=== PATIENT | male | born 1930 | race Caucasian/White ===

== ENCOUNTER 2019-01-08 16:30 | Inpatient (IN) ==
[2019-01-08] MEDS ORDERED: 0.9 % SODIUM CHLORIDE 1,000 ML IV ONE ×2 (16:40→16:41)
[2019-01-08] MEDS ORDERED: ACETAMINOPHEN 325 MG TABLET PO ONE (16:50)
--- NOTE | 2019-01-08 16:59 | Emergency Department Note ---
Weakness HPI - General Chief complaint: Weakness Stated complaint: Fever, weakness, cold symptoms. Time Seen by Provider: 01/08/19 16:40 Source: patient Mode of arrival: ambulatory Limitations: no limitations - History of Present Illness HPI Narrative: Since sent over from the [place] [facility] for weakness and dehydration with multiple episodes of diarrhea over the past 3 days she started having fever and chills today there is been no blood in the stool. He has been on no antibiotics recently. He said no nausea no vomiting denies abdominal pain. Temperatures 101.8 pulse is 83, blood pressure is 120/76 pulse ox is 96% - Related Data Allergies Allergy/AdvReac Type Severity Reaction Status Date / Time No Known Drug Allergies Allergy Verified 01/08/19 16:32 Review of Systems All systems ED: reviewed and negative except as stated. Constitutional: Reports: fever, chills Gastrointestinal: Reports: diarrhea. Denies: nausea, vomiting, constipation Genitourinary: Denies: dysuria, frequency Past Medical History - Past Medical History Medical history: Reports: other (BPH, allergic rhinitis, hyperlipidemia, GERD, reactive airway disease,) Surgical history ED: Reports: non-contributory Family history: Reports: non-contributory - Social History smoking status: Former smoker Alcohol use: Reports: Rarely Drug use: Reports: none Physical Exam Limitations: no limitations General appearance: alert Head: atraumatic, normocephalic Eye: Present: normal appearance, PERRL ENT: normal exam, normal oropharynx, mucous membranes dry Neck: Present: normal inspection, full ROM, trachea midline Chest: Present: normal inspection, symmetric chest wall rise. Absent: tenderness Respiratory: Present: normal lung sounds bilaterally. Absent: respiratory distress, rales/crackles, wheezes Cardiovascular: Present: regular rate, normal rhythm Abdominal: Present: soft. Absent: distention, tenderness, guarding, rebound Extremities: Present: normal inspection, full ROM. Absent: tenderness Back: Present: normal inspection, full ROM. Absent: tenderness Neurological: Present: alert, oriented X3, CN II-XII intact Psychiatric: Present: normal affect, normal mood Skin: Present: warm, cool, dry Course Vital Signs Temperature 101.8 F H 01/08/19 16:32 Pulse Rate 86 01/08/19 16:32 Respiratory Rate 18 01/08/19 16:32 Blood Pressure 122/92 01/08/19 16:32 Pulse Oximetry (%) 97 01/08/19 16:32 Temperature 97.7 F 01/08/19 17:45 Pulse Rate 63 01/08/19 22:21 Respiratory Rate 19 01/08/19 22:21 Blood Pressure 91/65 01/08/19 22:21 Pulse Oximetry (%) 94 01/08/19 22:21 Weakness - MDM Narrative Medical decision making narrative: Patient given IV fluids states he is feeling much improved. He has been unable to give us a stool sample however patient's main complaint is been his diarrhea at this time unable to give us a sample that he has been on no antibiotics recently he statesWhite count 13,100 to hemoglobin 14.6 lactic acid is 1.3 sodium is 136 potassium 4.6 BUN is 22 creatinine 0.9 urine test shows [address] of the abdomen revealed multiple diverticulosis no obvious diverticulitis but is suspicious that we started him on IV Levaquin and Flagyl patient finally able to give us a stool sample waiting for results of the C. difficile. His temperatures come down to normal at 97.7 at this time blood pressures come down to the mid 90s , waiting C. difficile test is neg patient discussed with Dr. Quinones patient admitted - Lab Data Result diagrams: 01/08/19 16:51 01/08/19 16:50 Lab Results 01/08/19 01/08/19 01/08/19 Range/Units 16:50 16:51 16:51 WBC 13.1 H (4.5-11.0) K/mcL RBC 4.66 (4.50-5.90) M/mcL Hgb 14.6 (13.5-16.5) g/dL Hct 43.9 (41.0-55.0) % MCV 94.3 (80.0-100.0) fL MCH 31.4 (26.0-34.0) pg MCHC 33.3 (31.0-36.0) g/dL RDW 13.2 (11.5-14.5) % Plt Count 160 (140-440) K/mcL MPV 8.6 (7.4-10.4) fL Total Counted 100 Seg Neutrophils % 67 (38-78) % Band Neutrophils % 13 H (0-10) % Lymphocytes % 12 L (15-49) % Monocytes % (Manual) 8 (1-12) % Platelet Estimate Normal (NORMAL) RBC Morphology Normal (NORMAL) VBG Lactic Acid 1.3 (0.5-2.0) mmol/L Sodium 136 (133-145) mmol/L Potassium 4.3 (3.3-5.1) mmol/L Chloride 103 (96-108) mmol/L Carbon Dioxide 18 L (22-30) mmol/L Anion Gap 15.0 (8-16) BUN 20 (8-23) mg/dl Creatinine 0.9 (0.7-1.2) mg/dl GFR Calculation 77 Glucose 136 H (70-105) mg/dL Calcium 8.6 (8.6-10.4) mg/dl Total Bilirubin 0.8 (0.0-1.0) mg/dL AST 15 (0-37) U/l ALT 12 (0-40) U/l Alkaline Phosphatase 77 (39-117) U/L Total Protein 7.2 (5.9-8.4) gm/dL Albumin 3.9 (3.2-5.2) gm/dL Globulin 3.3 (2.2-3.7) gm/dL Albumin/Globulin Ratio 1.2 (1.0-2.3) Urine Color Urine Appearance Urine pH (5.0-9.0) Ur Specific [place] (1.000-1.035) Urine Protein (NEG) mg/dL Urine Glucose (UA) (NEG) mg/dL Urine Ketones (NEG) mg/dL Urine Occult Blood (<0.03) mg/dL Urine Nitrate (NEG) Urine Bilirubin (NEG) mg/dL Urine Urobilinogen (NEG) mg/dL Ur Leukocyte Esterase (NEG) /uL Urine RBC (0-1) /hpf Urine WBC (0-4) /hpf Ur Squamous Epith Cells (0-4) /hpf Urine Bacteria (0) /hpf Hyaline Casts (0-2) /lpf Urine Mucus (0) /hpf Ur Culture Indicated? 01/08/19 Range/Units 18:20 WBC (4.5-11.0) K/mcL RBC (4.50-5.90) M/mcL Hgb (13.5-16.5) g/dL Hct (41.0-55.0) % MCV (80.0-100.0) fL MCH (26.0-34.0) pg MCHC (31.0-36.0) g/dL RDW (11.5-14.5) % Plt Count (140-440) K/mcL MPV (7.4-10.4) fL Total Counted Seg Neutrophils % (38-78) % Band Neutrophils % (0-10) % Lymphocytes % (15-49) % Monocytes % (Manual) (1-12) % Platelet Estimate (NORMAL) RBC Morphology (NORMAL) VBG Lactic Acid (0.5-2.0) mmol/L Sodium (133-145) mmol/L Potassium (3.3-5.1) mmol/L Chloride (96-108) mmol/L Carbon Dioxide (22-30) mmol/L Anion Gap (8-16) BUN (8-23) mg/dl Creatinine (0.7-1.2) mg/dl GFR Calculation Glucose (70-105) mg/dL Calcium (8.6-10.4) mg/dl Total Bilirubin (0.0-1.0) mg/dL AST (0-37) U/l ALT (0-40) U/l Alkaline Phosphatase (39-117) U/L Total Protein (5.9-8.4) gm/dL Albumin (3.2-5.2) gm/dL Globulin (2.2-3.7) gm/dL Albumin/Globulin Ratio (1.0-2.3) Urine Color Yellow Urine Appearance Hazy Urine pH 5.0 (5.0-9.0) Ur Specific [place] 1.026 (1.000-1.035) Urine Protein Neg (NEG) mg/dL Urine Glucose (UA) Negative (NEG) mg/dL Urine Ketones Neg (NEG) mg/dL Urine Occult Blood Neg (<0.03) mg/dL Urine Nitrate Neg (NEG) Urine Bilirubin Neg (NEG) mg/dL Urine Urobilinogen Neg (NEG) mg/dL Ur Leukocyte Esterase Neg (NEG) /uL Urine RBC 1 (0-1) /hpf Urine WBC 2 (0-4) /hpf Ur Squamous Epith Cells < 1 (0-4) /hpf Urine Bacteria 0 (0) /hpf Hyaline Casts 2 (0-2) /lpf Urine Mucus Many A (0) /hpf Ur Culture Indicated? No Disposition Pt seen by PODIATRY DOCTOR/PA only: No Clinical Impression: Diverticulitis Disposition: Xfer As Inpt ([facility]) Condition: Fair Referrals: Igor Davis MD [Primary Care Provider] -
[2019-01-08 17:29] LABS: Mean Cell Volume 94.3 fL (80.0-100.0); Mean Corpuscular HGB Conc 33.3 g/dL (31.0-36.0); Platelet Count 160 K/mcL (140-440); RBC 4.66 M/mcL (4.50-5.90); Red Cell Distribution Width 13.2 % (11.5-14.5)
[2019-01-08 17:37] LABS: ALT/SGPT 12 U/l (0-40); Albumin 3.9 gm/dL (3.2-5.2); Albumin/Globulin Ratio 1.2 (1.0-2.3); Alkaline Phosphatase 77 U/L (39-117); Blood Urea Nitrogen 20 mg/dl (8-23)
[2019-01-08 18:55] LABS: Band Neutrophils % 13 % (0-10); Lymphocytes % 12 % (15-49); Monocytes % (Manual) 8 % (1-12); Platelet Estimate NORMAL (NORMAL); RBC Morphology NORMAL (NORMAL); Segmented Neutrophils % 67 % (38-78)
--- NOTE | 2019-01-08 18:59 | XRay Report ---
CLINICAL INFORMATION: fever. COMPARISON: 12/31/2010 FINDINGS: Moderate size hiatal hernia again noted. The remainder of the cardiomediastinal silhouette and pulmonary vessels are normal. Lungs are clear. No effusions IMPRESSION: Moderate hiatal hernia - no acute disease Interpreted and Authenticated by: Rob Shah 01/08/19
[2019-01-08 19:00] LABS: Appearance,Urine HAZY; Bacteria,Urine 0 /hpf (0); Bilirubin,Urine NEG (NEG); Color,Urine YELLOW; Glucose,Urine (UA) NEGATIVE (NEG); Leukocyte Esterase,Urine NEG /uL (NEG); Mucus,Urine MANY /hpf (0); Protein,Urine NEG (NEG); Specific Gravity,Urine 1.026 (1.000-1.035); Urine Blood NEG mg/dL (<0.03); Urine Hyaline Cast 2 /lpf (0-2); Urine RBC 1 /hpf (0-1); Urine Squamous Epithelial Cell < 1 /hpf (0-4); Urine WBC 2 /hpf (0-4); Urobilinogen,Urine NEG (NEG)
[2019-01-08] MEDS ORDERED: LACTATED RINGERS 1,000 ML IV ONE (19:29)
--- NOTE | 2019-01-08 19:37 | Cat Scan Report ---
CLINICAL INFORMATION: Fever and diarrhea COMPARISON: 03/08/[address] TECHNIQUE: Following enteric contrast, 80 cc of Isovue-300 were injected intravenously, and 60 seconds later, 0.625 mm helical slices were obtained from the mid heart through the subtrochanteric regions. Following reconstruction, 2.5 mm sagittal, coronal and axial reformatted images were processed and reviewed at bone, lung and soft tissue windows. Five minutes later, 0.625 mm helical slices were obtained from the mid heart through the kidneys and viewed at soft tissue windows.The exam was performed using radiation dose optimization techniques including, but not limited to, automated exposure control, adjustment of the mA and/or kV according to patient size and use of iterative reconstruction technique. FINDINGS: Lung bases show moderate patchy atelectasis and/or fibrosis resting from 2014. No effusion. A large hiatal hernia consisting of the entire stomach has transmigrated into the middle mediastinum and undergone organoaxial volvulus. This has increased in size from the previous study. Abdominal images show 3-4 small polyps or stones in the gallbladder ranging up to 8 mm which are unchanged. Gallbladder and bile ducts are, otherwise, normal CBD 5 mm. The liver, both adrenal glands, spleen, pancreas and aorta are unremarkable. 3.7 cm simple cyst noted superior pole the left kidney and a 1 cm simple cyst inferior pole left kidney. No free air, free fluid or adenopathy. The prostate is moderately enlarged but unchanged 5.7 x 3.6 cm. Urinary bladder is normal. Severe sigmoid diverticulosis with moderate diverticulosis in the descending colon and splenic flexure. No supportive CT evidence for associated diverticulitis. The remainder of the colon, small bowel and appendix are normal.. There is a moderate-sized right inguinal hernia spanning 5.5 x 2 cm contains a small amount of edema in the hernia sac. Bone windows show no osseous abnormality IMPRESSION: 1. Severe diverticulosis involving the descending and sigmoid colon. Although there is no CT evidence for diverticulitis. Mild diverticulitis may be CT occult 2. Moderate right inguinal hernia containing only mesenteric fat. 3. Massive hiatal hernia consisting of the entire stomach which has transmigrated into the middle mediastinum and undergone organoaxial volvulus. 4. 3-4 polyp or, less likely us stones in the gallbladder ranging up to 7 mm. Consider gallbladder ultrasound. These are unchanged. 5. Left renal cysts 6. Mild prostate enlargement Interpreted and Authenticated by: Rob Shah 01/08/19
[2019-01-08] MEDS ORDERED: metroNIDAZOLE 500 MG/100 ML BAG IV ONE (19:53)
[2019-01-08] MEDS ORDERED: LEVOFLOXACIN 500 MG/100 ML BAG IV ONE (19:53)
--- NOTE | 2019-01-08 23:35 | Internal Med History&Physical ---
Medical - H&P: HPI Patient information: Note initiated : 01/08/19 at 11:32 pm Service Date, if different from initiated Date: [] Patient: Manuel Irving a 88 y/o M admitted on for Fever, weakness, cold symptoms.. Chief Complaint: [] History of present illness: Mr. Irving is a 88 year old M with history of diabetes, hypertension hyperlipidemia presents to the hospital today for evaluation of weakness that has been bothering him for the last 4 days. Next line the patient notes that his symptoms started approximately 4 days ago. Patient had hypogastric pain cramping intermittent nonradiating associated with some bowel movements. The patient symptoms were associated with some nausea, also was not able to eat and drink well. The patient developed fever over the last couple of days with chills and Rigors , he also had some sweating. The patient was weak and therefore he went to see his provider at the [facility]. His friend was concerned that the patient was too weak to be by himself, at the [facility] after evaluation the patient was sent to the emergency room for further evaluation. Patient took some Pepto-Bismol yesterday which helped with his abdominal pain. On presentation to the emergency room patient was febrile temperature 101.8 heart rate 81 blood pressure 122/92, respirations 27, saturating more than 90% on room air. The patient did develop hypotension during the ER stay blood pressure as low as 80/64. Patient has leukocytosis WBC count of 13.1 hemoglobin 14.6 platelets 160 electrolytes show a bicarb of 18 creatinine 0.9 glucose 136 lactic acid is 1.3 UA negative for infection chest x-ray shows hiatal hernia CT abdomen and pelvis done shows diverticulosis cannot exclude diverticulitis C. difficile stool is negative stool has many WBCs. Given that the patient was febrile on presentation, has leukocytosis had low BP and is weak patient is being admitted to the hospital for further management. By the time of my evaluation the patient was afebrile blood pressure had normalized and patient was quite comfortable. grand daughter by the bed side All systems: reviewed and no additional remarkable complaints except as stated (As per HPI rest negative) Medical - H&P: PMH Medical history: Diabetes Hyperlipidemia COPD BPH Surgical history: Bowel surgery done Family history: reviewed and not pertinent Social history: Lives by himself ex-smoker ex-alcohol user has not drank alcohol or smoked for many decades Fairly independent at baseline Denies any recreational drug use Medical - H&P: Meds Allergies Allergy/AdvReac Type Severity Reaction Status Date / Time No Known Drug Allergies Allergy Verified 01/08/19 16:32 Medical - H&P: Exam - Constitutional Vitals: Temp Pulse Resp BP Pulse Ox 97.7 F 61 17 108/76 98 01/08/19 17:45 01/08/19 23:02 01/08/19 23:02 01/08/19 23:02 01/08/19 23:02 Exam: Constitutional; Afebrile, cooperative, alert, not in distress. Eyes- No icterus, , No periorbital swelling Ears- Ext ear normal, hearing normal to conversation. Neck- Midline trachea, supple Respiratory system: Air Entry equal on both sides, No crackles or wheezing, no rhonchi. CVS- Rate rhythm regular, S1,S2 heard, no gallop, no rub. Abdomen- Soft nontender abdomen, no organomegaly, no tenderness, no guarding or rigidity, HEEL SANDER- AOOx3, moving all extremities, no gross focal deficit noted. Medical - H&P: Reslt - Labs CBC & Chem 7: 01/08/19 16:51 01/08/19 16:50 Labs: Short CBC 01/08/19 Range/Units 16:51 WBC 13.1 H (4.5-11.0) K/mcL Hgb 14.6 (13.5-16.5) g/dL Hct 43.9 (41.0-55.0) % Plt Count 160 (140-440) K/mcL BMP 01/08/19 16:50 Sodium 136 Potassium 4.3 Chloride 103 Carbon Dioxide 18 L BUN 20 Creatinine 0.9 Glucose 136 H Calcium 8.6 Liver Function 01/08/19 Range/Units 16:50 Total Bilirubin 0.8 (0.0-1.0) mg/dL AST 15 (0-37) U/l ALT 12 (0-40) U/l Alkaline Phosphatase 77 (39-117) U/L Albumin 3.9 (3.2-5.2) gm/dL Urine 01/08/19 Range/Units 18:20 Urine Color Yellow Urine Appearance Hazy Urine pH 5.0 (5.0-9.0) Ur Specific [place] 1.026 (1.000-1.035) Urine Protein Neg (NEG) mg/dL Urine Glucose (UA) Negative (NEG) mg/dL Medical - H&P: A/P - Narrative A/P Narrative: A/P Fever/Abdominal pain/Diarrhea Acute Diverticulitis -CT shows severe diverticulosis, unable to exclue diverticulitis, clinically appears diverticulitis. 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 monitor glucose on chemistry panel BPH -resume home meds once verfied DVT hep sq Full code Low residue diet
[2019-01-09] MEDS ORDERED: ONDANSETRON 4 MG/2 ML VIAL IV PRN (00:16)
[2019-01-09] MEDS ORDERED: ACETAMINOPHEN 325 MG TABLET PO PRN (00:16)
[2019-01-09] MEDS ORDERED: oxyCODONE HCL 5 MG TABLET PO PRN (00:16)
[2019-01-09] MEDS ORDERED: NALOXONE HCL 0.4 MG/ML VIAL IV PRN (00:16)
[2019-01-09] MEDS ORDERED: LACTATED RINGERS 1,000 ML IV SCH (00:16)
[2019-01-09] MEDS ORDERED: HYDROmorphone 2 MG/ML VIAL IV PRN (00:16)
[2019-01-09] MEDS ORDERED: ALBUTEROL SULFATE 2.5 MG/3 ML NEBULIZER NEB PRN (00:16)
[2019-01-09] MEDS: LEVOFLOXACIN 500 MG/100 ML BAG IV SCH ×2 (01:36→08:06)
[2019-01-09] MEDS: metroNIDAZOLE 500 MG/100 ML BAG IV SCH ×3 (01:36→21:39)
[2019-01-09] MEDS ORDERED: metroNIDAZOLE 500 MG/100 ML BAG IV ONE (05:09)
[2019-01-09 05:41] LABS: Basophils # (Auto) 0 K/mcL (0.0-0.3); Basophils % (Auto) 0.2 % (0.0-2.0); Eosinophils # (Auto) 0.2 K/mcL (0.0-0.7); Eosinophils % (Auto) 2.8 % (0.0-7.0); Granulocytes % (Auto) 64.7 % (38.0-78.0); Lymphocytes # (Auto) 1.9 K/mcL (1.5-4.8); Mean Cell Volume 94.9 fL (80.0-100.0); Mean Corpuscular HGB Conc 33.7 g/dL (31.0-36.0); Monocytes % (Auto) 11.3 % (1.0-12.0); Platelet Count 124 K/mcL (140-440); RBC 3.91 M/mcL (4.50-5.90); Red Cell Distribution Width 13.1 % (11.5-14.5)
[2019-01-09] MEDS: 0.9 % SODIUM CHLORIDE 10 ML SYRINGE IV SCH ×3 (05:52→21:42)
[2019-01-09 06:09] LABS: ALT/SGPT 9 U/l (0-40); Albumin 3.1 gm/dL (3.2-5.2); Albumin/Globulin Ratio 1.1 (1.0-2.3); Alkaline Phosphatase 77 U/L (39-117); Bilirubin,Direct < 0.2 mg/dL (0.0-0.3); Blood Urea Nitrogen 14 mg/dl (8-23); Gamma Glutamyl Transpeptidase 16 U/L (8-61); Uric Acid 7.3 mg/dL (2.5-8.0)
[2019-01-09] MEDS ORDERED: POLYVINYL ALCOHOL OPHTH DROPS 15ML BOTTLE OU PRN (12:23)
--- NOTE | 2019-01-09 12:36 | Internal Med Progress Note ---
Medical - PN: Subj Patient information: Note initiated : 01/09/19 at 12:33 pm Service Date, if different from initiated Date: [] Patient: Maneul Irving a 88 y/o M admitted on 01/09/19 for Fever, weakness, cold symptoms.. Chief Complaint: [] Interval history: Mr. Irving is a 88 year old M with history of diabetes, hypertension hyperlipidemia presents to the hospital today for evaluation of weakness that has been bothering him for the last 4 days. Next line the patient notes that his symptoms started approximately 4 days ago. Patient had hypogastric pain cramping intermittent nonradiating associated with some bowel movements. The patient symptoms were associated with some nausea, also was not able to eat and drink well. The patient developed fever over the last couple of days with chills and Rigors , he also had some sweating. The patient was weak and therefore he went to see his provider at the [facility]. His friend was concerned that the patient was too weak to be by himself, at the [facility] after evaluation the patient was sent to the emergency room for further evaluation. Patient took some Pepto-Bismol yesterday which helped with his abdominal pain. On presentation to the emergency room patient was febrile temperature 101.8 heart rate 81 blood pressure 122/92, respirations 27, saturating more than 90% on room air. The patient did develop hypotension during the ER stay blood pressure as low as 80/64. Patient has leukocytosis WBC count of 13.1 hemoglobin 14.6 platelets 160 electrolytes show a bicarb of 18 creatinine 0.9 glucose 136 lactic acid is 1.3 UA negative for infection chest x-ray shows hiatal hernia CT abdomen and pelvis done shows diverticulosis cannot exclude diverticulitis C. difficile stool is negative stool has many WBCs. Given that the patient was febrile on presentation, has leukocytosis had low BP and is weak patient is being admitted to the hospital for further management. By the time of my evaluation the patient was afebrile blood pressure had normalized and patient was quite comfortable. grand daughter by the bed side 01/09 Patient seen examined, no acute overnight issues, tolerating po diet well still has diarrhea, cdiff neg pt still feels quite weak and not strong enough to go home give his persistent weakness, will switch from obs to inpatient. Pertinent ROS: Denies headache, dizziness Denies chest pain, palpitations Denies cough or shortness of breath Denies abdominal pain, nausea or vomiting. abdominal cramps improving. - Constitutional Vitals: Vital Signs Temp Pulse Resp BP Pulse Ox 98.0 F 65 18 116/66 97 01/09/19 08:00 01/09/19 08:00 01/09/19 08:00 01/09/19 08:00 01/09/19 08:00 Period Temp Pulse Resp BP Sys/Schwarz Pulse Ox Last 24 Hr 97.3 F-101.8 F 61-90 12-28 80-126/55-92 93-98 Intake and Output 01/08/19 01/09/19 01/09/19 21:59 05:59 13:59 Intake Total 2200 150 1460 Output Total 1450 600 Balance 2200 -1300 860 Weight 174 lb 139 lb 8 oz Intake & Output: Intake & Output 01/08/19 01/09/19 01/09/19 21:59 05:59 13:59 Intake Total 2200 150 1460 Output Total 1450 600 Balance 2200 -1300 860 Weight 174 lb 139 lb 8 oz Intake: IV 2200 1100 Sodium Chloride 0.9% 1,000 ml @ 1000 Wide Open IV BOLUS ONE Rx#: [id number] Lactated Ringers 1,000 ml @ 1000 Wide Open IV BOLUS ONE Rx#: [id number] Oral 150 360 Output: Void Amount 1100 600 Stool 350 Other: Meal Breakfast Percent of Meal Consumed 100% Feeding Ability Assist with Tray Set Up Urine Appearance Clear Sediment Urine Color Bright Yellow Bright Yellow Urine Odor Strong Normal Stool Size Small Small Stool Color Brown [place] White Stool Consistency Loose Liquid Exam: Constitutional; Afebrile, cooperative, alert, not in distress. Respiratory system: Air Entry equal on both sides, No crackles or wheezing, no rhonchi. CVS- Rate rhythm regular, S1,S2 heard, no gallop, no rub. Abdomen- Soft nontender abdomen, no organomegaly, no tenderness, no guarding or rigidity, LUNCH COOK- AOOx3, moving all extremities, no gross focal deficit noted. Medical - PN: Obj Da - Labs CBC & Chem 7: 01/09/19 03:50 01/09/19 03:50 Labs: Abnormal Lab Results 01/09/19 01/09/19 01/08/19 03:50 03:50 18:20 WBC RBC 3.91 L Hgb 12.5 L Hct 37.1 L Plt Count 124 L [place] # (Auto) 1.0 H Band Neutrophils % Lymphocytes % Carbon Dioxide Glucose Calcium 7.7 L Phosphorus 2.1 L Albumin 3.1 L Urine Mucus Many A 01/08/19 01/08/19 16:51 16:50 WBC 13.1 H RBC Hgb Hct Plt Count [place] # (Auto) Band Neutrophils % 13 H Lymphocytes % 12 L Carbon Dioxide 18 L Glucose 136 H Calcium Phosphorus Albumin Urine Mucus Meds: Medications Acetaminophen (Tylenol) 650 mg PO Q6HP PRN PRN Reason: PAIN/FEVER > 101 Albuterol Sulfate (Ventolin) 2.5 mg NEB Q2HP PRN PRN Reason: Shortness Of Breath Artificial Tears (Artificial Tears Ophth Drops) 1 gtt OU QIDP PRN PRN Reason: Dry Eye(s) Ascorbic Acid (Vitamin C) 500 mg PO DAILY [facility] Aspirin (Ecotrin) 325 mg PO DAILY [facility] Fish Oil (Fish Oil) 1,000 mg PO DAILY [facility] Hydromorphone HCl (Dilaudid) 0.5 mg IV Q2HP PRN PRN Reason: PAIN LEVEL > 6 Levofloxacin (Levaquin) 500 mg in 100 mls @ 100 mls/hr IV Q24H [facility] Last Infusion: 01/09/19 11:17 Dose: Infused Documented by: Metronidazole (Flagyl) 500 mg in 100 mls @ 100 mls/hr IV Q8H [facility]; Protocol Last Admin: 01/09/19 01:36 Dose: Not Given Documented by: Iron Carb/Multivit/[place]/Folic Acid (Multivitamin W/Minerals) 1 tab PO DAILY [facility] Naloxone HCl (Narcan) 0.1 mg IV Q2MIN PRN PRN Reason: Opiate Reversal Ondansetron HCl (Zofran) 4 mg IV Q6HP PRN PRN Reason: Nausea And Vomiting Oxycodone HCl (Roxicodone) 5 mg PO Q4HP PRN PRN Reason: PAIN LEVEL 3-6 Sodium Chloride (Saline Flush) 10 ml IV Q8 [facility] Last Admin: 01/09/19 05:52 Dose: Not Given Documented by: Tamsulosin HCl (Flomax) 0.4 mg PO [facility] Medical - PN: A/P - Time Spent With Patient Total time spent is greater than 50% in coordination of care (as documented) at patient's floor/unit and/or counseling patient: - Narrative A/P Narrative: A/P Fever/Abdominal pain/Diarrhea Acute Diverticulitis -CT shows severe diverticulosis, unable to exclue diverticulitis, clinically appears diverticulitis. -IV levofloxacin and flagyl for now -pt tolerating po diet better today Dark stools -due to peptobismal -monitor hb -get fob HTN -hold bp meds for now, monitor DM with neuropathy -not on any meds at this time. monitor glucose on chemistry panel BPH -resume home meds once verified Weakness -Rehab ot/pt DVT hep sq Full code Low residue diet Medical - PN: Qual - VTE Deep Vein Thrombosis/Pulmonary Embolism Present on Admission: No
[2019-01-09] MEDS: ASPIRIN 325 MG ENTERIC COATED TABLET PO SCH (13:49)
[2019-01-09] MEDS ORDERED: TAMSULOSIN 0.4 MG CAPSULE PO SCH (21:00)
[2019-01-10] MEDS: metroNIDAZOLE 500 MG/100 ML BAG IV SCH (05:51)
[2019-01-10] MEDS: 0.9 % SODIUM CHLORIDE 10 ML SYRINGE IV SCH (05:51)
[2019-01-10 06:01] LABS: Basophils # (Auto) 0 K/mcL (0.0-0.3); Basophils % (Auto) 0.4 % (0.0-2.0); Eosinophils # (Auto) 0.3 K/mcL (0.0-0.7); Eosinophils % (Auto) 4.9 % (0.0-7.0); Granulocytes % (Auto) 53.1 % (38.0-78.0); Lymphocytes # (Auto) 1.9 K/mcL (1.5-4.8); Lymphocytes % (Auto) 28.6 % (15.5-49.0); Mean Cell Volume 95.6 fL (80.0-100.0); Mean Corpuscular HGB Conc 33.3 g/dL (31.0-36.0); Monocytes # (Auto) 0.8 K/mcL (0.1-0.9); Platelet Count 129 K/mcL (140-440); Red Cell Distribution Width 13.5 % (11.5-14.5)
[2019-01-10 06:24] LABS: ALT/SGPT 11 U/l (0-40); Albumin 3.3 gm/dL (3.2-5.2); Albumin/Globulin Ratio 1.2 (1.0-2.3); Alkaline Phosphatase 67 U/L (39-117); Bilirubin,Direct < 0.2 mg/dL (0.0-0.3); Blood Urea Nitrogen 13 mg/dl (8-23); Gamma Glutamyl Transpeptidase 16 U/L (8-61); Uric Acid 7.5 mg/dL (2.5-8.0)
[2019-01-10] MEDS ORDERED: POTASSIUM CHLORIDE 20 MEQ PACKET PO ONE (06:33)
[2019-01-10] MEDS: LEVOFLOXACIN 500 MG/100 ML BAG IV SCH (08:40)
[2019-01-10] MEDS: ASPIRIN 325 MG ENTERIC COATED TABLET PO SCH (08:40)
[2019-01-10] MEDS ORDERED: ASCORBIC ACID 500 MG TABLET PO SCH (09:00)
[2019-01-10] MEDS ORDERED: FISH OIL 1,000 MG CAPSULE PO SCH (09:00)
[2019-01-10] MEDS ORDERED: MULTIVIT,THER IRON,CA,FA & MIN 1 TABLET PO SCH (09:00)
--- NOTE | 2019-01-10 11:22 | Discharge Summary ---
Medical - DS: Prov Patient information: Note initiated : 01/10/19 at 11:17 am Service Date, if different from initiated Date: [] Patient: Manuel Irving 88 y/o M admitted on 01/09/19 for Fever, weakness, cold symptoms.. Chief Complaint: [] Date of admission: 01/09/19 10:10 Discharge date: 01/10/19 Primary care physician: Igor Davis Consults: 01/08/19 Consult to Physician [CONS] Stat Comment: Consulting Provider: Malena Wilson Reason For Exam: Physician to Consult Discharging clinician: Malena Wilson Medical - DS: Meds - Discharge Medications Prescriptions: Levofloxacin [Levaquin] 500 mg PO DAILY #5 tab metroNIDAZOLE [Metronidazole] 500 mg PO TID #15 tab Active and Home Medications: Home Medications Ascorbic Acid [Vitamin C with Jennifer Hips] 500 mg PO DAILY 01/09/19 [History Confirmed 01/09/19 Last Taken Unknown] Aspirin [Aspirin EC] 325 mg PO DAILY 01/09/19 [History Confirmed 01/09/19 Last Taken Unknown] Carboxymethylcellulose Sodium [Moisturizing Lubricant Eye Drp] 1 drp OP QIDP PRN 01/09/19 [History Confirmed 01/09/19 Last Taken Unknown] Multivitamin [One Daily] 1 each PO DAILY 01/09/19 [History Confirmed 01/09/19 Last Taken Unknown] [place]-3/Dha/Epa/Fish Oil [Fish Oil 1,000 mg Softgel] 1,000 mg PO DAILY 01/09/19 [History Confirmed 01/09/19 Last Taken Unknown] Tamsulosin HCl 0.4 mg PO HS 01/09/19 [History Confirmed 01/09/19 Last Taken Unknown] Medical - DS: Hosp Hospital course: Mr. Irving is a 88 year old M with history of diabetes, hypertension hyperlipidemia presents to the hospital today for evaluation of weakness that has been bothering him for the last 4 days. Next line the patient notes that his symptoms started approximately 4 days ago. Patient had hypogastric pain cramping intermittent nonradiating associated with some bowel movements. The patient symptoms were associated with some nausea, also was not able to eat and drink well. The patient developed fever over the last couple of days with chills and Rigors , he also had some sweating. The patient was weak and therefore he went to see his provider at the [facility]. His friend was concerned that the patient was too weak to be by himself, at the [facility] after evaluation the patient was sent to the emergency room for further evaluation. Patient took some Pepto-Bismol yesterday which helped with his abdominal pain. On presentation to the emergency room patient was febrile temperature 101.8 heart rate 81 blood pressure 122/92, respirations 27, saturating more than 90% on room air. The patient did develop hypotension during the ER stay blood pressure as low as 80/64. Patient has leukocytosis WBC count of 13.1 hemoglobin 14.6 platelets 160 electr olytes show a bicarb of 18 creatinine 0.9 glucose 136 lactic acid is 1.3 UA negative for infection chest x-ray shows hiatal hernia CT abdomen and pelvis done shows diverticulosis cannot exclude diverticulitis C. difficile stool is negative stool has many WBCs. Given that the patient was febrile on presentation, has leukocytosis had low BP and is weak patient is being admitted to the hospital for further management. By the time of my evaluation the patient was afebrile blood pressure had normalized and patient was quite comfortable. grand daughter by the bed side 01/09 Patient seen examined, no acute overnight issues, tolerating po diet well still has diarrhea, cdiff neg pt still feels quite weak and not strong enough to go home give his persistent weakness, will switch from obs to inpatient. 01/10 Patient seen exained, feels much better, able to ambulate without any help. Wants to go home lab s stable D/c home, has help at home with friends and family He will take levofloxacin and metronidazole for another 5 days to complete a 7 day course for diverticulitis. No other changes made to his chronic home medication regime. Discharge diagnosis: acute diverticulitis. - Time Spent with Patient Total time spent providing and/or coordinating discharge services: Greater than 30 minutes Medical - DS: Exam - Constitutional Vitals: Vital Signs Temp Pulse Resp BP BP Pulse Ox 01/10/19 08:00 98.8 F 62 18 134/82 95 01/10/19 03:53 97.5 F 60 18 114/80 95 01/09/19 23:49 98.5 F 68 16 102/68 95 01/09/19 18:44 98.6 F 71 16 122/79 94 01/09/19 16:00 98.4 F 69 18 128/77 95 01/09/19 12:00 97.8 F 79 18 126/85 97 Intake and Output 01/09/19 01/10/19 01/10/19 21:59 05:59 13:59 Intake Total 960 580 100 Output Total 1600 350 400 Balance -640 230 -300 Intake: IV 200 100 100 Oral 760 480 Output: Void Amount 1600 350 400 Other: Meal Dinner Breakfast Percent of Meal Consumed 75% 90% Feeding Ability Assist with Tray Set Up Independent Urine Appearance Clear Clear Clear Urine Color Light Christine Light Christine Light Christine Urine Odor Normal Normal Normal Stool Size Small Moderate Moderate Stool Color Green Green Green Stool Consistency Loose Loose Loose # Bowel Movements 1 1 1 Weight 139 lb Additional comments: Constitutional; Afebrile, cooperative, alert, not in distress. Respiratory system: Air Entry equal on both sides, No crackles or wheezing, no rhonchi. CVS- Rate rhythm regular, S1,S2 heard, no gallop, no rub. Abdomen- Soft nontender abdomen, no organomegaly, no tenderness, no guarding or rigidity, [employer]- AOOx3, moving all extremities, no gross focal deficit noted. Medical - DS: Data Labs on day of discharge: Labs from last 24 hours 01/10/19 01/10/19 03:45 03:45 WBC 6.5 RBC 4.00 L Hgb 12.8 L Hct 38.3 L MCV 95.6 MCH 31.9 MCHC 33.3 RDW 13.5 Plt Count 129 L MPV 8.6 Gran % 53.1 Lymph % (Auto) 28.6 Gonzales % (Auto) 13.0 H Eos % (Auto) 4.9 Baso % (Auto) 0.4 Gran # 3.5 Lymph # (Auto) 1.9 Gonzales # (Auto) 0.8 Eos # (Auto) 0.3 Baso # (Auto) 0 Sodium 141 Potassium 3.6 Chloride 108 Carbon Dioxide 23 Anion Gap 10.0 BUN 13 Creatinine 0.9 GFR Calculation 77 Glucose 90 Uric Acid 7.5 Calcium 8.1 L Phosphorus 2.6 L Magnesium 2.0 Total Bilirubin 0.4 Direct Bilirubin < 0.2 GGT 16 AST 18 ALT 11 Alkaline Phosphatase 67 Lactate Dehydrogenase 196 Total Protein 6.1 Albumin 3.3 Globulin 2.8 Albumin/Globulin Ratio 1.2 Triglycerides 72 Medical - DS: A/P - Patient/Caregiver Discharge Instructions Activity: increase activity as tolerated Diet: Low Fiber (switch to high fiber diet after 10-14 days) Additional Instructions: Follow up with PCP in 1 week Take antibiotics x 5 more days Go to the ER if worsening symptoms, chest pain, shortness of breath, fever or any other acute concern. - Follow up Plan Follow up with: Igor Davis MD [Primary Care Provider] - Disposition: Home, Self-Care Prognosis: Fair Rehab Potential: Fair I certify that the patient requires SNF services: No Overall status at discharge: patient is progressing back to baseline Medical - DS: Qual - VTE Deep Vein Thrombosis/Pulmonary Embolism Present on Admission: No
== END 2019-01-10 13:55 | disposition home or self-care (01) | DRG 392 ==
LOC: ED 16:30 → MEDSUR 16:30
PROVIDERS: ADMIT Internal Medicine; ATTEND Internal Medicine